=== PATIENT | male | born 1950 | race Asian ===

== ENCOUNTER 2018-09-23 22:15 | Emergency (ER) | payer MEDICARE, OTHER ==
[2018-09-24] MEDS: ALBUTEROL 0.5% (NEB) 2.5 MG/0.5 ML AMP INH (00:52)
[2018-09-24] MEDS: IPRATROPIUM (NEB) 0.5 MG/2.5 ML AMP INH (00:52)
[2018-09-24 01:06] LABS: ADD MAN DIFF? NO
[2018-09-24 01:08] LABS: WHITE BLOOD COUNT 11.6 10^3/ul (4.8-10.8)
[2018-09-24 01:08] LABS: BASOPHIL # 0.1 10^3/ul (0.0-0.1); BASOPHILS % 0.6 % (0.0-2.0); EOSINOPHILS # 1.2 10^3/ul (0.0-0.5); EOSINOPHILS % 10.1 % (0.0-7.0); HEMATOCRIT 44.1 % (42.0-52.0); HEMOGLOBIN 14.8 g/dl (14.0-18.0); LYMPHOCYTES # 2.8 10^3/ul (0.8-2.9); LYMPHOCYTES % 24.3 % (15.0-51.0); MEAN CORPUSCULAR HGB CONC 33.6 g/dl (32.0-37.0); MEAN CORPUSCULAR VOLUME 89.5 fl (82.0-101.0); MEAN PLATELET VOLUME 8.7 fl (7.4-10.4); MONOCYTE # 0.6 10^3/ul (0.3-0.9); MONOCYTES % 5.4 % (0.0-11.0); NEUTROPHIL # 6.9 10^3/ul (1.6-7.5); NEUTROPHILS % 59.3 % (39.0-77.0); PLATELET COUNT 239 10^3/UL (140-415); RED BLOOD COUNT 4.93 10^6/ul (4.70-6.10); RED CELL DISTRIBUTION WIDTH 14.2 % (11.5-14.5)
[2018-09-24] MEDS: METHYLPREDNISOLONE 125 MG INJ IV (01:17)
[2018-09-24 01:32] LABS: ALANINE AMINOTRANSFERASE 39 IU/L (13-69); ALBUMIN 4.6 g/dl (3.3-4.9); ALBUMIN/GLOBULIN RATIO 1.24; ALKALINE PHOSPHATASE 108 IU/L (42-121); ANION GAP 11 (5-13); ASPARTATE AMINO TRANSFERASE 32 IU/L (15-46); BILIRUBIN,INDIRECT 0.6 mg/dl (0-1.1); BILIRUBIN,TOTAL 0.6 mg/dl (0.2-1.3); BLOOD UREA NITROGEN 25 mg/dl (7-20); CALCIUM 9.2 mg/dl (8.4-10.2); CARBON DIOXIDE 27 mmol/L (21-31); CHLORIDE 104 mmol/L (97-110); CREATININE 1.73 mg/dl (0.61-1.24); Estimated GFR 39 mL/min (>60); GLUCOSE 188 mg/dl (70-220); SODIUM 142 mmol/L (135-144); TOTAL PROTEIN 8.3 g/dl (6.1-8.1)
[2018-09-24 01:43] LABS: B-TYPE NATRIURETIC PEPTIDE 54 PG/ML (0-125); TROPONIN-I < 0.012 ng/ml (0.000-0.120)
== END 2018-09-24 02:30 | disposition home or self-care (01) ==
LOC: E/R 22:15
DX: J45.901 Unspecified asthma with (acute) exacerbation (principal); I50.9 Heart failure, unspecified; I11.0 Hypertensive heart disease with heart failure; E11.9 Type 2 diabetes mellitus without complications; N28.9 Disorder of kidney and ureter, unspecified; Z79.82 Long term (current) use of aspirin; Z79.84 Long term (current) use of oral hypoglycemic drugs; Z86.73 Personal history of transient ischemic attack (TIA), and cerebral infarction without residual deficits
CPT/HCPCS: 71045; 80053; 83880; 84484; 85025; 94644; 96374; 99284-25